=== PATIENT | male | born 1945 | race African-American/Black ===

== ENCOUNTER 2016-12-05 15:54 | Inpatient (IN) | payer MEDICARE, MEDICAID ==
[~2016-12-05] VITALS: Ht 172.7 cm; Wt 64.0 kg
[2016-12-05] MEDS ORDERED: ACETAMINOPHEN 650MG SUPP PR STA (16:45)
[2016-12-05] MEDS ORDERED: SODIUM CHLORIDE 0.9% 1000ML BAG (SEPSIS BOLUS) IV ONE (16:45)
[2016-12-05] MEDS ORDERED: VANCOMYCIN 1 G PREMIX 200 ML IV ONE (17:15)
[2016-12-05] MEDS ORDERED: PIPERACILLIN/TAZ 3.375G PREMIX 50 ML IV ONE (17:15)
[2016-12-05 17:19] LABS: BASOPHILS % 0.3 % (0.0-2.0); EOSINOPHILS % 0.1 % (0.0-5.0); HEMATOCRIT. 26.2 % (42.0-52.0); HEMOGLOBIN. 8.1 g/dL (14.0-18.0); MEAN CORPUSCULAR VOLUME 84.3 fL (80.0-94.0); MEAN PLATELET VOLUME 8.1 fl (7.4-10.4); MONOCYTES % 4.7 % (2.0-8.0); NEUTROPHILS % 86.9 % (40.0-76.0); PLATELET 349 x1000/uL (130-400); RED BLOOD CELL COUNT 3.11 mill/uL (4.7-6.1); RED CELL DISTRIBUTION WIDTH 17.7 % (11.6-14.6)
[2016-12-05 17:23] LABS: INR 1.3; PROTHROMBIN TIME 13.1 sec
[2016-12-05 17:24] LABS: CHLORIDE 117 mEq/L (98-107)
[2016-12-05 17:27] LABS: CARBON DIOXIDE 25 mEq/L (21-32)
[2016-12-05 17:34] LABS: TROPONIN I 0.05 ng/mL (0.00-0.04)
[2016-12-05 19:53] LABS: GLUCOSE URINE NEGATIVE (NEGATIVE); KETONES URINE 2+ (NEGATIVE); LEUKOCYTE ESTERASE URINE 3+ (NEGATIVE); NITRITE URINE POSITIVE (NEGATIVE); OCCULT BLOOD URINE 3+ (NEGATIVE); PROTEIN URINE 3+ (NEGATIVE); SPECIFIC GRAVITY URINE 1.018 (1.005-1.030)
[2016-12-05 19:56] LABS: CLARITY URINE BLOODY (CLEAR); COLOR URINE RED (YELLOW)
[2016-12-05] MEDS ORDERED: SODIUM CHLORIDE 0.9% 1,000 ML IV ONE (21:48)
[2016-12-06] VITALS (60 sets, daily range): BP systolic 86–151; BP diastolic 50–95
[2016-12-06] MEDS ORDERED: PIPERACILLIN/TAZ 3.375G PREMIX 50 ML IV SCH ×2 (02:00→14:00)
[2016-12-06] MEDS ORDERED: VANCOMYCIN 1 G PREMIX 200 ML IV SCH (02:00)
[2016-12-06] MEDS ORDERED: NOREPINEPHRINE 8 MG in DEXT 5% WATER 242 ML IV PRN (02:00)
[2016-12-06] MEDS ORDERED: DEXT 5%/0.45% NACL 1000ML 1,000 ML IV NR (02:00)
[2016-12-06] MEDS ORDERED: PIPERACILLIN/TAZ 2.25G PREMIX 50 ML IV SCH ×2 (03:00→12:00)
[2016-12-06 05:24] LABS: BASOPHILS % 0.5 % (0.0-2.0); EOSINOPHILS % 0.4 % (0.0-5.0); HEMATOCRIT. 21.7 % (42.0-52.0); LYMPHOCYTES % 14.7 % (20.0-50.0); MEAN CORPUSCULAR HEMOGLOBIN 26.2 pg (28.0-32.0); MEAN CORPUSCULAR VOLUME 84.9 fL (80.0-94.0); MEAN PLATELET VOLUME 8.5 fl (7.4-10.4); MONOCYTES % 5.7 % (2.0-8.0); NEUTROPHILS % 78.7 % (40.0-76.0); PLATELET 265 x1000/uL (130-400); RED BLOOD CELL COUNT 2.56 mill/uL (4.7-6.1); RED CELL DISTRIBUTION WIDTH 17.6 % (11.6-14.6)
[2016-12-06 05:39] LABS: HEMOGLOBIN. 6.7 g/dL (14.0-18.0)
[2016-12-06 06:22] LABS: CARBON DIOXIDE 24 mEq/L (21-32); CHLORIDE 123 mEq/L (98-107); HDL CHOLESTEROL 24 mg/dL (40-59); LDL CHOLESTEROL 47 mg/dL (5-100); PHOSPHORUS 2.9 mg/dL (2.5-4.9); TOTAL IRON BINDING CAPACITY 85 ug/dL (250-450)
[2016-12-06 06:31] LABS: T4 FREE 1.29 ng/dL (0.76-1.46)
[2016-12-06 06:59] LABS: TRIOIODOTHYRONINE TOTAL 0.46 ng/ml (0.60-1.81)
[2016-12-06 08:39] LABS: PROSTRATE SPECIFIC AG TOTAL 2.46 ng/mL (0.0-4.0)
[2016-12-06] MEDS: PANTOPRAZOLE SODIUM 40 MG/VIAL IV SCH (09:54)
[2016-12-06] MEDS ORDERED: DEXTROSE 5% WATER 1,000 ML IV SCH (10:15)
[2016-12-06] MEDS ORDERED: POTASSIUM CHLORIDE 20MEQ/PACKET PO SCH (10:15)
[2016-12-06] MEDS ORDERED: KCL 20MEQ/100ML PREMIX 100 ML IV SCH (12:00)
[2016-12-06] MEDS ORDERED: MVI, ADULT NO.1 10 ML in DEXT 5%/0.45% NACL 1000ML 1,000 ML IV SCH ×2 (13:00)
[2016-12-06] MEDS: VANCOMYCIN 1 G PREMIX 200 ML IV SCH (14:21)
[2016-12-06 19:58] LABS: BASOPHILS % 0.3 % (0.0-2.0); EOSINOPHILS % 0.5 % (0.0-5.0); HEMATOCRIT. 28.4 % (42.0-52.0); HEMOGLOBIN. 9.1 g/dL (14.0-18.0); LYMPHOCYTES % 13.4 % (20.0-50.0); MEAN PLATELET VOLUME 8.1 fl (7.4-10.4); MONOCYTES % 5.1 % (2.0-8.0); NEUTROPHILS % 80.7 % (40.0-76.0); PLATELET 262 x1000/uL (130-400); RED BLOOD CELL COUNT 3.37 mill/uL (4.7-6.1); RED CELL DISTRIBUTION WIDTH 16.1 % (11.6-14.6)
[2016-12-06] MEDS: PIPERACILLIN/TAZ 3.375G PREMIX 50 ML IV SCH (20:00)
[2016-12-06 20:34] LABS: CARBON DIOXIDE 24 mEq/L (21-32); CHLORIDE 122 mEq/L (98-107); PHOSPHORUS 2.1 mg/dL (2.5-4.9)
[2016-12-06] MEDS ORDERED: FUROSEMIDE 20MG/2ML VIAL IVP NR (23:13)
[2016-12-06] MEDS: KCL 20MEQ/100ML PREMIX 100 ML IV SCH (23:46)
[2016-12-07] VITALS (37 sets, daily range): BP systolic 83–123; BP diastolic 48–73
[2016-12-07] MEDS ORDERED: POTASSIUM PHOS,M-BASIC-D-BASIC 20 MMOL in DEXT 5% WATER 243.3333 ML IV NR ×2
[2016-12-07] MEDS: KCL 20MEQ/100ML PREMIX 100 ML IV SCH ×2 (01:37→03:45)
[2016-12-07] MEDS ORDERED: DEXT 5%/0.45% NACL 1000ML 1,000 ML IV SCH (02:00)
[2016-12-07] MEDS: PIPERACILLIN/TAZ 3.375G PREMIX 50 ML IV SCH ×3 (03:49→19:37)
[2016-12-07 04:56] LABS: HEMATOCRIT. 30.5 % (42.0-52.0); MEAN CORPUSCULAR HEMOGLOBIN 27.7 pg (28.0-32.0); MEAN CORPUSCULAR VOLUME 84.5 fL (80.0-94.0); PLATELET 251 x1000/uL (130-400); RED BLOOD CELL COUNT 3.61 mill/uL (4.7-6.1); RED CELL DISTRIBUTION WIDTH 16.4 % (11.6-14.6)
[2016-12-07 05:06] LABS: CARBON DIOXIDE 23 mEq/L (21-32); CHLORIDE 121 mEq/L (98-107); PHOSPHORUS 3.8 mg/dL (2.5-4.9)
[2016-12-07] MEDS: VANCOMYCIN 1 G PREMIX 200 ML IV SCH ×2 (05:27→23:37)
[2016-12-07] MEDS: PANTOPRAZOLE SODIUM 40 MG/VIAL IV SCH (08:12)
[2016-12-07 09:31] LABS: NUCLEATED RED BLOOD CELLS 1 /100 WBC; PLATELET ESTIMATE NORMAL
[2016-12-07] MEDS ORDERED: DEXT 5% WATER + KCL 20MEQ/L 1,000 ML IV SCH (12:30)
[2016-12-07] MEDS: DEXT 5% WATER + KCL 20MEQ/L 1,000 ML IV SCH (17:49)
[2016-12-07] MEDS ORDERED: VANCOMYCIN 750 MG PREMIX 150 ML IV SCH (19:00)
[2016-12-08] VITALS (46 sets, daily range): BP systolic 92–126; BP diastolic 52–99
[2016-12-08] MEDS: [UNRECOGNIZED DRUG - REMARK] IV SCH ×3 (03:11)
[2016-12-08] MEDS: DEXT 5% WATER + KCL 20MEQ/L 1,000 ML IV SCH ×3 (03:30→20:00)
[2016-12-08] MEDS: PIPERACILLIN/TAZ 3.375G PREMIX 50 ML IV SCH ×3 (04:38→17:23)
[2016-12-08 05:14] LABS: CARBON DIOXIDE 28 mEq/L (21-32); CHLORIDE 115 mEq/L (98-107)
[2016-12-08] MEDS: PANTOPRAZOLE SODIUM 40 MG/VIAL IV SCH (08:11)
[2016-12-08] MEDS ORDERED: KCL 20MEQ/100ML PREMIX 100 ML IV SCH (08:45)
[2016-12-08] MEDS: VANCOMYCIN 1 G PREMIX 200 ML IV SCH (18:36)
[2016-12-09] VITALS (47 sets, daily range): BP systolic 88–132; BP diastolic 43–89
[2016-12-09] MEDS: PIPERACILLIN/TAZ 3.375G PREMIX 50 ML IV SCH ×5 (00:09→23:56)
[2016-12-09] MEDS: [UNRECOGNIZED DRUG - REMARK] IV SCH ×3 (03:00)
[2016-12-09 05:34] LABS: BASOPHILS % 0.4 % (0.0-2.0); EOSINOPHILS % 3.3 % (0.0-5.0); HEMATOCRIT. 28.8 % (42.0-52.0); HEMOGLOBIN. 9.3 g/dL (14.0-18.0); LYMPHOCYTES % 28.2 % (20.0-50.0); MEAN CORPUSCULAR HEMOGLOBIN 27.3 pg (28.0-32.0); MEAN CORPUSCULAR VOLUME 84.4 fL (80.0-94.0); MEAN PLATELET VOLUME 8.8 fl (7.4-10.4); MONOCYTES % 5.3 % (2.0-8.0); NEUTROPHILS % 62.8 % (40.0-76.0); PLATELET 219 x1000/uL (130-400); RED BLOOD CELL COUNT 3.42 mill/uL (4.7-6.1); RED CELL DISTRIBUTION WIDTH 16.7 % (11.6-14.6)
[2016-12-09 05:51] LABS: CARBON DIOXIDE 24 mEq/L (21-32); CHLORIDE 111 mEq/L (98-107)
[2016-12-09] MEDS: PANTOPRAZOLE SODIUM 40 MG/VIAL IV SCH (08:26)
[2016-12-09] MEDS: VANCOMYCIN 1 G PREMIX 200 ML IV SCH (12:13)
[2016-12-09] MEDS: DEXT 5% WATER + KCL 20MEQ/L 1,000 ML IV SCH (17:28)
[2016-12-10] VITALS (46 sets, daily range): BP systolic 61–124; BP diastolic 27–66
[2016-12-10] MEDS: DEXT 5% WATER + KCL 20MEQ/L 1,000 ML IV SCH ×2 (05:30→17:23)
[2016-12-10] MEDS: [UNRECOGNIZED DRUG - REMARK] IV SCH ×3 (06:06)
[2016-12-10] MEDS: VANCOMYCIN 1 G PREMIX 200 ML IV SCH (06:06)
[2016-12-10] MEDS: PIPERACILLIN/TAZ 3.375G PREMIX 50 ML IV SCH ×3 (06:06→17:24)
[2016-12-10 06:09] LABS: CARBON DIOXIDE 23 mEq/L (21-32); CHLORIDE 106 mEq/L (98-107); VANCOMYCIN TROUGH 33.4 ug/mL (5.0-10.0)
[2016-12-10] MEDS: PANTOPRAZOLE SODIUM 40 MG/VIAL IV SCH ×2 (10:31→22:28)
[2016-12-10] MEDS ORDERED: KCL 20MEQ/100ML PREMIX 100 ML IV SCH (14:00)
[2016-12-11] MEDS: PIPERACILLIN/TAZ 3.375G PREMIX 50 ML IV SCH ×4 (00:55→17:24)
[2016-12-11] MEDS: [UNRECOGNIZED DRUG - REMARK] IV SCH ×3 (03:26)
[2016-12-11 04:00] VITALS: BP 105/61
[2016-12-11] MEDS: DEXT 5% WATER + KCL 20MEQ/L 1,000 ML IV SCH ×2 (05:33→18:52)
[2016-12-11 06:13] LABS: BASOPHILS % 0.8 % (0.0-2.0); EOSINOPHILS % 6.2 % (0.0-5.0); HEMOGLOBIN. 9.1 g/dL (14.0-18.0); MEAN CORPUSCULAR HEMOGLOBIN 27.4 pg (28.0-32.0); MEAN CORPUSCULAR VOLUME 84.6 fL (80.0-94.0); MEAN PLATELET VOLUME 8.5 fl (7.4-10.4); MONOCYTES % 7.3 % (2.0-8.0); NEUTROPHILS % 55.7 % (40.0-76.0); PLATELET 220 x1000/uL (130-400); RED BLOOD CELL COUNT 3.31 mill/uL (4.7-6.1); RED CELL DISTRIBUTION WIDTH 16.4 % (11.6-14.6)
[2016-12-11 07:04] LABS: PHOSPHORUS 2.4 mg/dL (2.5-4.9)
[2016-12-11 08:00] VITALS: BP 94/57
[2016-12-11 08:05] LABS: CARBON DIOXIDE 26 mEq/L (21-32); CHLORIDE 107 mEq/L (98-107); T4 FREE 1.54 ng/dL (0.76-1.46)
[2016-12-11] MEDS: PANTOPRAZOLE SODIUM 40 MG/VIAL IV SCH ×2 (08:57→22:32)
[2016-12-11] MEDS ORDERED: MIDAZOLAM HCL 5 MG/5 ML VIAL ONE (11:04)
[2016-12-11] MEDS ORDERED: FENTANYL CITRATE/PF 50MCG/ML 2ML VIAL ONE (11:04)
[2016-12-11] MEDS ORDERED: SIMETHICONE 40 MG/0.6 ML 30ML ONE (11:04)
[2016-12-11] MEDS ORDERED: FENTANYL CITRATE/PF 50MCG/ML 2ML VIAL IV PRN (11:21)
[2016-12-11] MEDS ORDERED: MIDAZOLAM HCL 5 MG/5 ML VIAL IV PRN (11:21)
[2016-12-11 12:00] VITALS: BP 118/66
[2016-12-11 16:00] VITALS: BP 85/49
[2016-12-11 20:00] VITALS: BP 80/45
[2016-12-11] MEDS: VANCOMYCIN 750 MG PREMIX 150 ML IV SCH (22:32)
[2016-12-12] VITALS: BP 83/47
[2016-12-12] MEDS: PIPERACILLIN/TAZ 3.375G PREMIX 50 ML IV SCH ×4 (01:01→18:28)
[2016-12-12] MEDS: [UNRECOGNIZED DRUG - REMARK] IV SCH ×3 (03:10)
[2016-12-12 04:00] VITALS: BP 98/48
[2016-12-12] MEDS: DEXT 5% WATER + KCL 20MEQ/L 1,000 ML IV SCH ×2 (06:25→20:17)
[2016-12-12 08:00] VITALS: BP 94/50
[2016-12-12] MEDS: PANTOPRAZOLE SODIUM 40 MG/VIAL IV SCH ×2 (08:00→20:17)
[2016-12-12 12:00] VITALS: BP 104/48
[2016-12-12] MEDS ORDERED: SODIUM CHLORIDE 0.9% 10ML VIAL ONE (13:39)
[2016-12-12 16:00] VITALS: BP 110/61
[2016-12-12 19:24] VITALS: BP 96/46
[2016-12-12] MEDS: VANCOMYCIN 750 MG PREMIX 150 ML IV SCH (22:46)
[2016-12-13 00:02] VITALS: BP 83/39
[2016-12-13] MEDS: PIPERACILLIN/TAZ 3.375G PREMIX 50 ML IV SCH ×3 (00:39→12:29)
[2016-12-13] MEDS: [UNRECOGNIZED DRUG - REMARK] IV SCH ×3 (03:17)
[2016-12-13 04:05] VITALS: BP 102/43
[2016-12-13 08:00] VITALS: BP 92/47
[2016-12-13] MEDS ORDERED: SODIUM PHOS,M-BASIC-D-BASIC 20 MM in DEXT 5% WATER 243.3333 ML IV SCH (09:30)
[2016-12-13] MEDS: PANTOPRAZOLE SODIUM 40 MG/VIAL IV SCH (09:44)
[2016-12-13] MEDS: DEXT 5% WATER + KCL 20MEQ/L 1,000 ML IV SCH (10:18)
[2016-12-13 10:57] VITALS: BP 92/47
[2016-12-13 12:00] VITALS: BP 105/64
== END 2016-12-13 14:11 | DRG 871 ==
LOC: ER 15:56 → MICUSO 21:28 → 6EST 12-10 23:18
PROVIDERS: ADMIT Internal Medicine; ATTEND Internal Medicine
PROC: 02HV33Z Insertion of Infusion Device into Superior Vena Cava, Percutaneous Approach (ICD-10-PCS; 2016-12-06)
PROC: B548ZZA Ultrasonography of Superior Vena Cava, Guidance (ICD-10-PCS; 2016-12-06)
PROC: 30233N1 Transfusion of Nonautologous Red Blood Cells into Peripheral Vein, Percutaneous Approach (ICD-10-PCS; 2016-12-06)
PROC: 0DH63UZ Insertion of Feeding Device into Stomach, Percutaneous Approach (ICD-10-PCS; principal; 2016-12-11 10:30)
DX: A41.4 Sepsis due to anaerobes (principal); G92 Toxic encephalopathy; E43 Unspecified severe protein-calorie malnutrition; J18.9 Pneumonia, unspecified organism; R47.01 Aphasia; E87.0 Hyperosmolality and hypernatremia; N39.0 Urinary tract infection, site not specified; N17.9 Acute kidney failure, unspecified; R62.7 Adult failure to thrive; E87.6 Hypokalemia; E78.00 Pure hypercholesterolemia, unspecified; E86.0 Dehydration; I10 Essential (primary) hypertension; R13.10 Dysphagia, unspecified; D64.9 Anemia, unspecified; Z66 Do not resuscitate; L89.899 Pressure ulcer of other site, unspecified stage; L89.529 Pressure ulcer of left ankle, unspecified stage; L89.519 Pressure ulcer of right ankle, unspecified stage; L89.219 Pressure ulcer of right hip, unspecified stage; L89.229 Pressure ulcer of left hip, unspecified stage; Z87.891 Personal history of nicotine dependence; Z68.21 Body mass index [BMI] 21.0-21.9, adult
CPT/HCPCS: 36415; 36569; 71010; 76937; 80048; 80053; 80061; 80069; 80076; 80202; 81001; 83540; 83550; 83605; 83735; 83880; 84100; 84153; 84439; 84443; 84480; 84481; 84484; 84550; 85007; 85025; 85027; 85610; 86850; 86900; 86920; 87040; 87077; 87086; 87186; 87493; 92610; 93005; 93970; 96361; 96365; 96375; 99291; A4216; A6261; C1725; C1769; C1887; C1892; C9113; J1940; J2250; J2543; J3010; J3370; J3480; J3490; J7030; J7040; J7050; J7060; J7070; P9016